=== PATIENT | male | born 1970 | race Caucasian/White ===

== ENCOUNTER 2019-10-02 23:30 | Inpatient (IN) | payer OTHER ==
[~2019-10-02] VITALS: Ht 177.8 cm; Wt 100.0 kg
--- NOTE | 2019-10-03 00:03 | NUR ---
PT AMBULATE TO ROOM FROM LOBBY, ATTEMTPTING TO PROVIDE URINE SPECIMEN, AWARE TO PLEASE REMAIN NPO
[2019-10-03] MEDS ORDERED: ONDANSETRON 2MG/ML, 2ML IVPush ONE (00:30)
[2019-10-03] MEDS ORDERED: SODIUM CHLORIDE FLUSH 10ML SYR IVF ONE (00:30)
[2019-10-03] MEDS ORDERED: LORazepam 2 MG/ML, 1ML IVPush ONE (00:30)
[2019-10-03 00:31] LABS: BASOPHILS # (AUTO) 0.01 x10^3/uL (0-0.1); BASOPHILS % (AUTO) 0 % (0-1); EOSINOPHILS # (AUTO) 0.01 x10^3/uL (0-0.4); EOSINOPHILS % (AUTO) 0 % (1-7); LYMPHOCYTES # (AUTO) 0.62 x10^3/uL (1-3.4); LYMPHOCYTES % (AUTO) 5 % (22-44); MD NO; MEAN CORPUSCULAR HGB CONC 33.1 g/dL (33.2-36.2); MEAN PLATELET VOLUME 8.8 fL (7.4-10.4); MONOCYTES # (AUTO) 0.34 x10^3/uL (0.2-0.8); MONOCYTES % (AUTO) 3 % (2-9); NEUTROPHILS # (AUTO) 12.55 x10^3/uL (1.8-6.8); NEUTROPHILS % (AUTO) 93 % (42-75); PLATELET COUNT 222 x10^3/uL (130-400); RED BLOOD COUNT 5.31 x10^6/uL (4.38-5.82); RED CELL DISTRIBUTION WIDTH 13.9 % (9.4-14.8)
[2019-10-03 00:44] LABS: ALANINE AMINOTRANSFERASE 37 U/L (12-78); ALBUMIN 4.3 g/dL (3.4-5.0); ANION GAP 8 mmol/L (5-15); CALCIUM 10.3 mg/dL (8.5-10.1); CHLORIDE 104 mmol/L (98-107); CREATININE 1.45 mg/dL (0.7-1.3)
[2019-10-03 00:48] LABS: ALKALINE PHOSPHATASE 48 U/L (45-117); BILIRUBIN,TOTAL 0.7 mg/dL (0.2-1.0); TOTAL PROTEIN 8.6 g/dL (6.4-8.2)
[2019-10-03] MEDS ORDERED: ONDANSETRON 2MG/ML, 2ML ONE ×2 (01:10→03:31)
[2019-10-03] MEDS ORDERED: LORazepam 2 MG/ML, 1ML ONE (01:11)
[2019-10-03] MEDS ORDERED: MORPHINE SULFATE 4 MG/ML, 1ML ONE ×2 (01:11→02:19)
[2019-10-03] MEDS: MORPHINE SULFATE 4 MG/ML, 1ML IVPush PRN ×2 (01:14→02:21)
--- NOTE | 2019-10-03 01:15 | NUR ---
AKASH RN: ASSISTED IN PT CARE. IV ACCESS OBTAINED. PT MEDICATED PER MAY FOR 9/10 EPIGASTRIC ABD PAIN. CALL LIGHT IN REACH.
[2019-10-03 01:59] LABS: MICROSCOPIC INDICATED
--- NOTE | 2019-10-03 02:52 | NUR ---
Report given to OR staff, spoke to Wing HUMPHREYS. 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
[2019-10-03] MEDS ORDERED: FENTANYL PF 250 MCG/5ML ONE (03:17)
[2019-10-03] MEDS ORDERED: MIDAZOLAM 1 MG/ML, 2ML ONE (03:17)
[2019-10-03] MEDS ORDERED: ROCURONIUM 10MG/ML,5ML ONE (03:31)
[2019-10-03] MEDS ORDERED: PROPOFOL 10 MG/ML, 20ML ONE (03:31)
[2019-10-03] MEDS ORDERED: SUGAMMADEX 200 MG/2 ML IVPush ONE (03:31)
[2019-10-03] MEDS ORDERED: DEXAMETHASONE 4 MG/ML, 1ML ONE (03:31)
[2019-10-03] MEDS ORDERED: CEFAZOLIN 1,000 MG ONE (03:31)
[2019-10-03] MEDS ORDERED: SUCCINYLCHOLINE 20 MG/ML, 10ML ONE (03:31)
[2019-10-03] MEDS ORDERED: BUPIVACAINE/PF-EPI 0.5% 1:200K ONE (03:47)
[2019-10-03] MEDS ORDERED: BUPIVACAINE/PF-EPI 0.5% 1:200K IM ONE (03:48)
[2019-10-03] MEDS ORDERED: MEPERIDINE/PF 25MG/0.5ML IVPush PRN (04:00)
[2019-10-03] MEDS ORDERED: OXYcodone 5 MG/5 ML ORAL.SOL UDC PO PRN (04:00)
[2019-10-03] MEDS ORDERED: KETOROLAC 30 MG/1 ML IV PRN (04:00)
[2019-10-03] MEDS ORDERED: HYDROmorphone 1 MG/ML, 1ML INJ IV PRN (04:00)
[2019-10-03] MEDS ORDERED: LABETALOL 5MG/ML, 20ML IV PRN (04:00)
[2019-10-03] MEDS ORDERED: hydrALAzine 20 MG/ML, 1ML IV PRN (04:00)
[2019-10-03] MEDS ORDERED: ALBUTEROL SULFATE 2.5 MG/3 ML NPPB PRN (04:00)
[2019-10-03] MEDS ORDERED: DIAZEPAM 5 MG/ML, 2ML IV PRN ×2 (04:00)
[2019-10-03] MEDS ORDERED: PROMETHAZINE 25 MG/ML, 1ML IV PRN (04:00)
[2019-10-03] MEDS ORDERED: ONDANSETRON 2MG/ML, 2ML IVPush PRN ×2 (04:00→04:30)
[2019-10-03] MEDS ORDERED: FENTANYL PF 100 MCG/2ML ONE ×2 (04:20→04:59)
[2019-10-03] MEDS: FENTANYL PF 100 MCG/2ML IV PRN ×4 (04:21→05:01)
[2019-10-03] MEDS ORDERED: morphine SULFATE 10 MG/ML, 1ML IVPush PRN (04:30)
[2019-10-03] MEDS ORDERED: ACETAMINOPHEN 325 MG TABLET PO PRN (04:30)
[2019-10-03] MEDS ORDERED: PROMETHAZINE 25 MG/ML, 1ML IM PRN (04:30)
[2019-10-03] MEDS ORDERED: ONDANSETRON ODT 4 MG PO PRN (04:30)
[2019-10-03] MEDS ORDERED: LACTATED RINGERS 1,000 ML IV SCH (04:30)
[2019-10-03] MEDS ORDERED: hydrALAzine 20 MG/ML, 1ML IVPush PRN (04:30)
[2019-10-03] MEDS ORDERED: OXYcodone IR 5MG TABLET PO PRN (04:30)
[2019-10-03] MEDS ORDERED: KETOROLAC 30 MG/1 ML ONE (04:35)
[2019-10-03] MEDS ORDERED: OXYcodone 5 MG/5 ML ORAL.SOL UDC ONE (04:36)
[2019-10-03] MEDS ORDERED: OXYcodone/APAP 5/325MG TABLET PO PRN (05:00)
[2019-10-03 05:05] LABS: FREE T4 (FREE THYROXINE) 1.14 ng/dL (0.76-1.46)
[2019-10-03 05:24] VITALS: BP 127/81
[2019-10-03 05:30] VITALS: BP 127/81
[2019-10-03] MEDS ORDERED: morphine SULFATE 10 MG/ML, 1ML IV PRN (06:00)
[2019-10-03] MEDS ORDERED: HYDROcodone/APAP 5/325 TABLET PO PRN (06:00)
[2019-10-03] MEDS ORDERED: ONDANSETRON 2MG/ML, 2ML IV PRN (06:00)
[2019-10-03 07:38] VITALS: BP 122/82
[2019-10-03] MEDS: LACTATED RINGERS 1,000 ML IV SCH ×2 (08:35→22:12)
[2019-10-03 12:13] VITALS: BP 121/73
[2019-10-03 18:41] VITALS: BP 134/76
[2019-10-03 18:48] VITALS: BP 122/75
[2019-10-03] MEDS ORDERED: OMNIPAQUE 350 MG/ML, 100ML BOTTLE ONE (22:00)
[2019-10-03] MEDS ORDERED: OXYcodone/APAP 5/325MG TABLET ONE (22:23)
[2019-10-03] MEDS: OXYcodone/APAP 5/325MG TABLET PO PRN (22:25)
[2019-10-04 01:30] VITALS: BP 116/73
[2019-10-04] MEDS: OXYcodone/APAP 5/325MG TABLET PO PRN ×3 (04:35→15:49)
[2019-10-04 05:30] LABS: BASOPHILS # (AUTO) 0.03 x10^3/uL (0-0.1); BASOPHILS % (AUTO) 0 % (0-1); EOSINOPHILS # (AUTO) 0.05 x10^3/uL (0-0.4); EOSINOPHILS % (AUTO) 1 % (1-7); LYMPHOCYTES # (AUTO) 1.91 x10^3/uL (1-3.4); LYMPHOCYTES % (AUTO) 20 % (22-44); MD NO; MEAN CORPUSCULAR HEMOGLOBIN 30.2 pg (27.5-34.5); MEAN PLATELET VOLUME 8.6 fL (7.4-10.4); MONOCYTES # (AUTO) 1.01 x10^3/uL (0.2-0.8); MONOCYTES % (AUTO) 10 % (2-9); NEUTROPHILS # (AUTO) 6.74 x10^3/uL (1.8-6.8); NEUTROPHILS % (AUTO) 69 % (42-75); PLATELET COUNT 180 x10^3/uL (130-400); RED BLOOD COUNT 4.18 x10^6/uL (4.38-5.82); RED CELL DISTRIBUTION WIDTH 13.8 % (9.4-14.8)
[2019-10-04 05:43] LABS: ALANINE AMINOTRANSFERASE 27 U/L (12-78); ANION GAP 5 mmol/L (5-15); CALCIUM 8.3 mg/dL (8.5-10.1); CHLORIDE 108 mmol/L (98-107)
[2019-10-04 05:45] LABS: ALKALINE PHOSPHATASE 35 U/L (45-117); BILIRUBIN,TOTAL 0.5 mg/dL (0.2-1.0); CHOL/HDL RATIO 2.8; CHOLESTEROL, TOTAL 145 mg/dL (140-239); CREATININE 1.13 mg/dL (0.7-1.3); HDL CHOL % 36 % (26-37); HDL CHOLESTEROL (DIRECT) 52 mg/dL (40-60); LDL CHOLESTEROL,CALCULATED 77 mg/dL (54-169); LDL/HDL RATIO 1.5 (0.5-3.0); TOTAL PROTEIN 6.1 g/dL (6.4-8.2); TRIGLYCERIDES 78 mg/dL (50-200); VLDL CHOLESTEROL 16 mg/dL (0-25)
[2019-10-04] MEDS ORDERED: ENOXAPARIN 40 MG/0.4 ML SQ SCH (06:00)
[2019-10-04 07:51] VITALS: BP 116/75
[2019-10-04] MEDS: LACTATED RINGERS 1,000 ML IV SCH (10:54)
[2019-10-04] MEDS ORDERED: DOCUSATE 100 MG CAPSULE PO PRN (11:30)
[2019-10-04] MEDS ORDERED: OXYC-302 PO (13:47)
[2019-10-04] MEDS ORDERED: DOCU-131 PO (13:48)
[2019-10-04 14:01] VITALS: BP 106/66
== END 2019-10-04 16:59 | disposition home or self-care (01) | DRG 337 ==
LOC: ED 10-03 00:33 → EDIP 10-03 02:43 → 4NE 10-03 05:22 → DCLOUNGE 10-04 16:37
PROVIDERS: ADMIT Internal Medicine; ATTEND Internal Medicine
PROC: 0DNU0ZZ Release Omentum, Open Approach (ICD-10-PCS; principal; 2019-10-03 05:00)
DX: K56.609 Unspecified intestinal obstruction, unspecified as to partial versus complete obstruction (principal); G89.18 Other acute postprocedural pain; D72.829 Elevated white blood cell count, unspecified; Z20.828 Contact with and (suspected) exposure to other viral communicable diseases; Z86.73 Personal history of transient ischemic attack (TIA), and cerebral infarction without residual deficits; Z90.49 Acquired absence of other specified parts of digestive tract; Z82.3 Family history of stroke; Z82.49 Family history of ischemic heart disease and other diseases of the circulatory system
CPT/HCPCS: 36415; 74177; 80053; 80061; 81001; 83036; 83690; 83735; 84439; 84443; 85025; 87635; 96374; 96375; 96376; 99285; G0378; J0690; J1100; J1650; J1885; J2250; J2405; J2704; J3010; Q9967; J0330; J2270; J7120